=== PATIENT | female | born 1970 | race Caucasian/White ===

== ENCOUNTER 2021-03-26 09:42 | Outpatient (CLI) | payer OTHER, SELFPAY ==
--- NOTE | 2021-03-26 10:15 | MR_ITS ---
WS: [id number] MRI CERVICAL SPINE NONCONTRAST TECHNIQUE: Sagittal T1, T2 and STIR imaging. Axial T2, gradient, and fiesta imaging. CLINICAL INFORMATION: CERVICAL RADICULOPATHY COMPARISON: None. FINDINGS: Straightening of the normal cervical lordosis. Small disc protrusions at C5-C6 and C6-C7. Cord signal is normal. C2-C3: Normal. C3-C4: Mild disc bulge with endplate ridging. Mild right foraminal narrowing. Spinal canal is patent. Mild facet arthropathy. C4-C5: Minimal disc bulging with osteophytic ridging. Mild right and no significant left foraminal na rrowing. Spinal canal is patent. Mild facet arthropathy. C5-C6: Shallow central disc protrusion with slight contact of the cervical cord. Mild central canal s tenosis. Moderate bilateral bony foraminal narrowing. Mild facet arthropathy. C6-C7: Left pericentral disc protrusion extending into the left proximal neural foramen. Impingement on the exiting left C7 nerve root. Indentation left ventral cervical cord with mild central canal surendra nosis. Moderate to severe left and mild to moderate right bony foraminal narrowing. C7-T1: Normal. Visualized brain stem structures: Normal. Prevertebral soft tissues: Normal. MR/MR cervical spin wo con* [id number] IMPRESSION: 1. Straightening of the normal cervical lordosis. Cord signal is normal. 2. Mild central canal stenosis C5-C6 and C6-C7. 3. Prominent left pericentral protrusion left C6-7 impinges the left ventral c ervical cord extending into the left neural foramen. Impingement on the exiting left C7 nerve root with moderate to severe left foraminal narrowing. Recommend correlation left C7 nerve root symptoms. 4. Mild to moderate bony foraminal narrowing worse at right C4-5, bilateral C5 -C6, and right C6-7.
== END 2021-03-26 09:43 | disposition home or self-care (01) ==
PROVIDERS: PCP Family Medicine; Visit Provider Family Medicine
DX: M54.12 Radiculopathy, cervical region (principal); M48.02 Spinal stenosis, cervical region; M50.223 Other cervical disc displacement at C6-C7 level
CPT/HCPCS: 72141

== ENCOUNTER 2021-06-21 14:42 | Outpatient (CLI) | payer OTHER, SELFPAY ==
--- NOTE | 2021-06-21 14:48 | MM_ITS ---
WS: [id number] BILATERAL DIGITAL SCREENING MAMMOGRAPHY WITH CAD CLINICAL INFORMATION: SCREENING HISTORY: Screening mammogram. No current complaints. COMPARISON: TECHNIQUE: Bilateral CC and MLO views. FINDINGS: The breasts are composed of heterogeneous fibroglandular density tissue, which can limit the detectio n of small underlying mass lesions. Stable punctate and lucent centered calcifications right breast. No suspicious mass, asymmetry, calcifications, or architectural distortion. No evidence of malignancy . MM/[place] [id number] IMPRESSION: BI-RADS: 2-Benign FOLLOW UP: 1 Year Follow-up Recommend return to annual screening mammography.
== END 2021-06-21 14:43 | disposition home or self-care (01) ==
LOC: RADSHAW 14:45
PROVIDERS: PCP Family Medicine; Visit Provider Family Medicine
DX: Z12.31 Encounter for screening mammogram for malignant neoplasm of breast (principal)
CPT/HCPCS: 77067